=== PATIENT | female | born 1980 | race Caucasian/White ===

== ENCOUNTER 2017-07-28 02:04 | Emergency (ER) | payer OTHER ==
[2017-07-28] MEDS: diphenhydrAMINE INJ 50MG/ML VIAL (J1200) IM (02:52)
[2017-07-28 03:44] LABS: ALBUMIN 3.5 GM/DL (3.2-5.2); ALBUMIN/GLOBULIN RATIO 1.35 (1.00-1.93); ALKALINE PHOSPHATASE 40 U/L (45-117); ALT/SGPT 21 U/L (12-78); AST/SGOT 13 U/L (7-37); BILIRUBIN,DIRECT < 0.1 MG/DL (0.0-0.2); BILIRUBIN,TOTAL 0.2 MG/DL (0.2-1.0); TOTAL PROTEIN 6.1 GM/DL (6.4-8.2)
== END 2017-07-28 04:06 | disposition home or self-care (01) ==
LOC: M ED 02:04
DX: L29.8 Other pruritus (principal)
CPT/HCPCS: J1200